=== PATIENT | male | born 1995 | race Caucasian/White ===

== ENCOUNTER 2018-03-10 08:21 | Emergency (ER) | payer OTHER ==
[2018-03-10 08:24] VITALS: Ht 160 cm
[2018-03-10 10:13] VITALS: BP 138/71
== END 2018-03-10 10:13 | disposition home or self-care (01) ==
LOC: ED 08:21
DX: S80.212A Abrasion, left knee, initial encounter (principal); R07.89 Other chest pain; V49.88XA Car occupant (driver) (passenger) injured in other specified transport accidents, initial encounter; Y93.I9 Activity, other involving external motion; Y92.413 State road as the place of occurrence of the external cause; Y99.8 Other external cause status